=== PATIENT | female | born 1960 | race Caucasian/White ===

== ENCOUNTER → 2017-04-16 | Outpatient (CLI) | payer OTHER ==
[~2017-04-16] MED LIST: ALLEGRA-D 24 H1 EACH PO; BUPROPION XL150 MG PO; CPAP INH; DYMISTA NASAL S23 GM NOSE; FLONASE 50 MCG/16 GM NOSE; HEARTBURN RELI150 MG PO; LEVOTHROID (S150 MCG PO; LOSARTAN-HCTZ1 EAC1 PO; PRILOSEC20 MG PO; PRISTIQ ER100 MG PO; SINGULAIR10 MG PO
--- NOTE | ~2017-04-16 | PUL ---
PATIENT'S NAME: ROHAN CAMP [facility] AGE: 57 Y [address] ROOM: [place] [id number] LOCATION: [facility], [place] ADMIT DATE: 04/16/2017 Pulmonary DISCHARGE DATE: FAMILY PHYSICIAN: ELIAS DAVID MD ATTENDING PHYSICIAN: Reina Baez NAME OF PROCEDURE: Sleep study PROCEDURE DATE: 04/16/17 TECH: YANELI Blackmon TEST #: [facility] [place]# [id number] TECHNICAL PARAMETERS: The patient was studied using International 10/20 measuring system. While the patient was studied, there was continuous monitoring of EEG (8 leads), EOG (2 leads), EKG (3 leads), submental EMG (3 leads), tibial (4 leads), respiratory inductive plethysmography (RIP) for thoracic and abdominal effort, oral and nasal airflow with a thermocouple and pressure transducer, and oximetry. The environmental sampling technician also performed visual and auditory observations noting things like body position, patient's status, breath sounds, artifact, snoring level and patient comments. Continuous sound was monitored using a 2-way speaker system and video monitoring was performed using an infrared camera. Review of the entire study was performed epoch by epoch utilizing a single epoch and multiple epoch capability sleep system. MEDICAL HISTORY: The patient is a 57-year-old woman with daytime sleepiness and snoring. She has a history of obstructive sleep apnea. This study was done to titrate CPAP. SLEEP STAGE SUMMARY: The patient was studied for 441 minutes of which she slept 425 minutes. She fell asleep in 6 minutes and slept for 96% of the night. Sleep architecture revealed a decline in slow wave and REM sleep. RESPIRATORY SUMMARY: Oxygen saturations ranged from 86-94%. CPAP was initiated at 8 cm and titrated to 12 cm with good control of the respiratory events. EKG SUMMARY: Occasional PVCs and PACs were noted. LIMB MOVEMENT SUMMARY: No clinically relevant periodic limb movements were noted. SUMMARY: Obstructive sleep apnea responsive to CPAP at 12 cm. PATIENT'S NAME: ROHNA CAMP [facility] AGE: 57 Y [address] ROOM: [place] [id number] LOCATION: [facility], [place] ADMIT DATE: 04/16/2017 Pulmonary DISCHARGE DATE: FAMILY PHYSICIAN: ELIAS DAVID MD ATTENDING PHYSICIAN: Reina Baez PLAN: Suggest CPAP at 12 cm. The patient will receive results from the ordering provider. ESPINOZA BROOKS MD /[id number] dtt: 05/01/17 1001 , Espinoza Brooks. dtd: 04/18/17 1428
== END | disposition disaster alternative care site (69) ==
LOC: GSLP 01-21 21:00
DX: G47.33 Obstructive sleep apnea (adult) (pediatric) (principal)